=== PATIENT | female | born 1950 | race Caucasian/White ===

== ENCOUNTER 2017-01-25 08:01 | Day surgery (SDC) | payer MEDICARE, OTHER ==
[~2017-01-25] VITALS: Ht 172.7 cm; Wt 72.7 kg
[~2017-01-25 08:01] MED LIST: ASPI81 PO; ATEN-100 PO; ROSU40 PO; VERA240CR PO
[2017-01-25 08:20] VITALS: BP 160/89; PULSE 65; RESP 20; TEMP 98.2; O2SAT 97
[2017-01-25] MEDS ORDERED: ROSU5 PO (08:26)
[2017-01-25] MEDS ORDERED: ASPI81CH6 CHEW (08:26)
[2017-01-25] MEDS ORDERED: VERA120T3 PO ×2 (08:26)
[2017-01-25] MEDS ORDERED: ATEN50TA PO (08:26)
[2017-01-25] MEDS ORDERED: SODIUM CHLOR 0.9% 1000 ML IV SCH (08:30)
[2017-01-25] MEDS ORDERED: LIDOCAINE 1%/EPINEPHrine 1:100,000 SOLN 20 ML VIAL ONE (08:48)
[2017-01-25] MEDS ORDERED: MIDAZOLAM HCL 5 MG/5 ML VIAL ONE (09:24)
--- NOTE | 2017-01-25 10:11 | PD.RAD ---
Post CT Procedure Prog Note Pre Procedure Diagnosis: (1) Lung nodule seen on imaging study Post Procedure Diagnosis: (1) Lung nodule seen on imaging study Procedure Date: Jan 25, 2017 Supervising Radiologist: David Brown JR Anesthesia: Conscious Sedation Plan of Activity Patient to Unit: [facility] Patient Condition: Good See PACS Report for procedural detail/treatment Biopsy Imaging Guidance: CT Side: Right Biopsy Procedure: Lung Specimen: Core Biopsy Findings: Core sample of right lung nodule. Touch prep cytology evaluation done at time of bx. Good samples noted. No PTX on post bx images. Jr. Kevin,David Goode MD Jan 25, 2017 10:10
[2017-01-25 10:25] VITALS: BP 94/54; PULSE 62; RESP 16; TEMP 98.2; O2SAT 96
--- NOTE | 2017-01-25 10:33 | RADRPT ---
EXAM DATE/TIME: 01/25/2017 09:29 [facility] COMPARISON: No previous studies available for comparison. INDICATIONS : Right lung nodule SEDATION TIME: 30 minutes BIOPSY SITE: Right lung MEDICATION(S): 1.) 4 mg midazolam (Versed) IV 2.) 200 mcg fentanyl (Sublimaze) IV DEVICE(S): 1.) 19 gauge introducer 2.) 20 gauge Temno core biopsy needle MEDICAL HISTORY : Hypertension. SURGICAL HISTORY : None. ENCOUNTER: Initial ACUITY: 1 day PAIN SCORE: 0/10 LOCATION: Right chest A total of four core specimen(s) were obtained and sent to the laboratory for pathologic evaluation. PROCEDURE: 1. CT guided lung biopsy. Prior to the procedure informed consent was obtained. Any appropriate prior imaging studies were rev iewed. Using automated exposure control and adjustment of the mA and/or kV according to patient size, radiation dose was kept as low as reasonably achievable to obtain optimal diagnostic quality images. DICOM format image data is available electronically for review and comparison. The site was prepped in a sterile fashion. Full sterile technique was used, including cap, mask, regino rile gloves and gown and a large sterile sheet. Hand hygiene and 2% chlorhexidine and/or betadine/al cohol prep was utilized per protocol for cutaneous antisepsis. The skin and subcutaneous tissues wer e infiltrated with local anesthetic solution. With CT guidance the 2.4 cm right upper lobe pulmonary mass was localized. A coaxial needle was passe d via a right anterior axial line approach into the lesion. A total of 4 core samples were obtained. The first core sample was utilized for a touch prep for cytological evaluation. This cytological eval uation was performed at the time of biopsy and showed adequate material. Post biopsy CT images showed no pneumothorax. Small volume hemorrhage noted within the parenchyma. Adequate hemostasis was obtain ed with compression at the puncture site. Conscious sedation was performed with the prescribed dosages and duration as above in the presence of an independent trained radiology nurse to assist in the monitoring of the patient. EKG and oximetry remained stable throughout the procedure. The patient tolerated the procedure well and there were no complications. The patient was sent to Radiology Outpatient Unit in stable condition. CONCLUSION: Uncomplicated CT guided biopsy of a 2.4 cm right upper lobe pulmonary mass. David Brown Jr., MD on January 25, 2017 at 10:27 Board Certified Radiologist. This report was verified electronically.
[2017-01-25 10:40] VITALS: BP 92/56; PULSE 58; RESP 16; O2SAT 96
[2017-01-25 10:55] VITALS: BP 106/65; PULSE 57; RESP 16; O2SAT 96
[2017-01-25 11:25] VITALS: BP 99/56; PULSE 59; RESP 16; O2SAT 96
--- NOTE | 2017-01-25 11:25 | RADRPT ---
EXAM DATE/TIME: 01/25/2017 11:08 [facility] COMPARISON: No previous studies available for comparison. INDICATIONS : Post right lung biopsy. MEDICAL HISTORY : Hypertension. SURGICAL HISTORY : ORIF right shoulder. ENCOUNTER: Initial ACUITY: 1 day PAIN SCORE: 0/10 LOCATION: Bilateral chest FINDINGS: A single frontal expiratory view of the chest was performed after biopsy. There is no pneumothorax. The cardio-mediastinal contours and bronchopulmonary markings are unremarkable for an expiratory exam . Osseous structures are intact. CONCLUSION: There is no pneumothorax.. Erik Tejada MD FACR on January 25, 2017 at 11:23 Board Certified Radiologist. This report was verified electronically.
[2017-01-25 11:55] VITALS: BP 93/62; PULSE 56; RESP 18; O2SAT 95
== END 2017-01-25 12:45 | disposition home or self-care (01) ==
LOC: HRAD 08:01 → HRIP 08:09 → HRAD 12:45
PROVIDERS: ATTEND Internal Medicine Hematology & Oncology
DX: D3A.090 Benign carcinoid tumor of the bronchus and lung (principal); R91.8 Other nonspecific abnormal finding of lung field
CPT/HCPCS: 32405; 71010; 77012; 88305; 88333; 88341; 88342; J2250; J3010; J7030